=== PATIENT | male | born 1970 | race Caucasian/White ===

== ENCOUNTER 2023-08-06 17:06 | Emergency (ER) | payer BC ==
[2023-08-06 17:23] VITALS: BP 178/97; O2SAT 98
[2023-08-06] MEDS: IBUPROFEN 600 MG TABLET PO STA (18:02)
[2023-08-06] MEDS: ACETAMINOPHEN 325 MG TABLET PO STA (18:02)
--- NOTE | 2023-08-06 18:32 | ED Physician Documentation ---
PD HPI HEAD INJURY - Stated complaint Stated Complaint: FALL/HEAD LAC - Chief complaint Chief Complaint: Trauma Hd/Nk - Additional information Additional information: 53-year-old male with no pertinent past medical history presents emergency department for fall downstairs. Patient said that he was working on a deck with his father he went to go step down a stair and forgot that that stent had been removed he fell about 4 feet on the back of his head onto concrete. There is a large scalp hematoma to posterior head, no confusion no loss of consciousness no seizure-like activity no nausea vomiting. Patient says that he feels jittery a nd shaky and he feels a mild jaw pain. PD PAST MEDICAL HISTORY - Past Medical History Past Medical History: No - Past Surgical History Past Surgical History: No - Present Medications Home Medications: Ambulatory Orders Medication Instructions Recorded Confirmed No Known Home Medications 08/06/23 08/06/23 - Allergies Allergies/Adverse Reactions: Allergies Allergy/AdvReac Type Severity Reaction Status Date / Time No Known Drug Allergies Allergy Verified 08/06/23 17:19 - Social History Does the pt smoke?: No Smoking Status: Never smoker Does the pt drink ETOH?: No Does the pt have substance abuse?: No - Immunizations Immunizations are current?: No PD ED PE NORMAL - Vitals Vital signs reviewed: Yes - General General: Alert and oriented X 3, No acute distress, Well developed/nourished - HEENT HEENT: PERRL, Other (About 8 cm posterior scalp hematoma) - Derm Derm: Other (superficial scalp abrasions) - Extremities Extremities: No deformity - Neuro Neuro: Alert and oriented X 3, glove cleaner 2-12 intact, No motor deficit, No sensory deficit, Normal speech Eye Opening: Spontaneous Motor: Obeys Commands Verbal: Oriented GCS Score: 15 - Psych Psych: Normal mood, Normal affect Results - Vitals Vitals: Vital Signs - 24 hr 08/06/23 17:15 Temperature 36 C L Heart Rate 92 Respiratory 18 Rate Blood Pressure 178/97 H O2 Saturation 98 - Labs Labs: Laboratory Tests 08/06/23 08/06/23 18:40 18:40 WBC 13.4 H RBC 4.77 Hgb 14.2 Hct 42.1 MCV 88.3 MCH 29.8 MCHC 33.7 RDW 12.5 Plt Count 280 MPV 10.1 Neut # (Auto) 9.3 H Lymph # (Auto) 2.8 [place] # (Auto) 0.9 Eos # (Auto) 0.3 Baso # (Auto) 0.1 Absolute Nucleated RBC 0.00 Nucleated RBC % 0.0 Sodium 138 Potassium 3.7 Chloride 105 Carbon Dioxide 26 Anion Gap 7.0 BUN 17 Creatinine 1.0 Estimated GFR (MDRD) 78 L Glucose 122 H Calcium 9.4 Magnesium 1.9 Total Bilirubin 0.5 AST 18 ALT 18 Alkaline Phosphatase 67 Total Protein 7.8 Albumin 4.4 Globulin 3.4 Albumin/Globulin Ratio 1.3 Lipase 24 - Rads (name of study) Head CT without Relevant Findings:: Final report received, EMP independent interpretation of test, Other (Significant intracranial hemorrhage largely subarachnoid seen anterior all left worse than right scalp hematoma on the right) PD Medical Decision Making - ED course ED course: 53-year-old male completely neurologically intact comes into the emergency department for fall from about 4 steps onto concrete hitting the back of his Head. CT without contrast was complete and it revealed a significant intracranial hemorrhage Which is largely subarachnoid seen anteriorly left worse than right. CT maxillofacial and CT cervical was also complete but these results are still pending. We have reached out to [facility] spoke with Dr. Will ER physician who has agreed to accept patient ER to ER for transfer. Patient is completely neurologically intact no neurological deficits. He is superficial abrasions to the posterior scalp. He does endorse and headache he was given Tylenol ibuprofen here in the emergency department he was not given any benzos or narcotics and does not show any lethargy or fatigue prior to transfer out. C-spine was placed on patient as we have not had the official CT reads back from radiology. Patient was updated of the findings he is aware and agreeable to be transferred to [facility] via [facility]. Departure - Departure Disposition: 02 Transfer Acute Care Hosp Forms: PCP List
[2023-08-06 18:52] LABS: BASOPHILS # (AUTO) 0.1 10^3/uL (0.0-0.1); BASOPHILS % (AUTO) 0.7 %; EOSINOPHILS # (AUTO) 0.3 10^3/uL (0.0-0.7); HCT - HEMATOCRIT 42.1 % (42.0-52.0); HGB - HEMOGLOBIN 14.2 g/dL (14.0-18.0); LYMPHOCYTES # (AUTO) 2.8 10^3/uL (1.5-3.5); LYMPHOCYTES % (AUTO) 20.6 %; MEAN CORPUSCULAR HEMOGLOBIN 29.8 pg (27.0-31.0); MEAN CORPUSCULAR HGB CONC 33.7 g/dL (32.0-36.0); MEAN CORPUSCULAR VOLUME 88.3 fL (80.0-94.0); MEAN PLATELET VOLUME 10.1 fL (7.4-11.4); MONOCYTES # (AUTO) 0.9 10^3/uL (0.0-1.0); MONOCYTES % (AUTO) 6.9 %; NEUTROPHILS # (AUTO) 9.3 10^3/uL (1.5-6.6); NEUTROPHILS % (AUTO) 69.3 %; PLT - PLATELET COUNT 280 10^3/uL (130-450); RED BLOOD COUNT 4.77 10^6/uL (4.70-6.10); RED CELL DISTRIBUTION WIDTH 12.5 % (12.0-15.0); WHITE BLOOD COUNT 13.4 x10^3/uL (4.8-10.8)
[2023-08-06 18:59] LABS: MAGNESIUM 1.9 mg/dL (1.7-2.3)
--- NOTE | 2023-08-06 19:02 | CT Report ---
PROCEDURE: Head WO INDICATIONS: fall from stairs, large scalp hematoma TECHNIQUE: Noncontrast 4.5 mm thick angled axial sections acquired from the foramen magnum to the vertex. For r adiation dose reduction, the following was used: automated exposure control, adjustment of mA and/or kV according to patient size. COMPARISON: None. FINDINGS: Image quality: Excellent. CSF spaces: Basal cisterns are patent. No extra-axial fluid collections. Ventricles are normal in size and shape. Brain: There is significant intracranial hemorrhage, which is largely seen as subarachnoid hemorrhag e anteriorly, left worse than right. Potential parenchymal hemorrhage can be seen involving the left temporal lobe. No midline shift. No intracranial masses. Singleton-white matter interface is normal. Skull and face: A scalp hematoma is seen posteriorly and on the right. Calvarium and visualized facia l bones are intact, without suspicious lesions. Sinuses: Visualized sinuses and mastoids are clear. IMPRESSION: There is significant intracranial hemorrhage seen, which is largely subarachnoid hemorrhage seen ante riorly, left worse than right. Additional potential parenchymal hemorrhage can be seen with involving the left temporal lobe. There is a scalp hematoma seen posteriorly on the right. No associated calvarial fracture is seen. Note: Critical findings discussed by telephone with Rose Marion at 6:59 PM [place] time on 08/06/2023 . Reviewed by: Gerardo Fajardo MD on 08/06/2023 6:00 PM AKDT Approved by: Gerardo Fajardo MD on 08/06/2023 6:00 PM AKDT Station ID: [id number]
[2023-08-06 19:05] LABS: ALBUMIN 4.4 g/dL (3.2-5.5); ALBUMIN/GLOBULIN RATIO 1.3 (1.0-2.2); BILIRUBIN,TOTAL 0.5 mg/dL (0.2-1.0); CALCIUM 9.4 mg/dL (8.5-10.3); POTASSIUM 3.7 mmol/L (3.5-4.5); TOTAL PROTEIN 7.8 g/dL (6.4-8.9)
--- NOTE | 2023-08-06 19:37 | CT Report ---
PROCEDURE: Maxillofacial WO INDICATIONS: skull fracture TECHNIQUE: Noncontrast 1.5 mm thick axial images acquired from the mandible through the frontal sinuses, with co erick and sagittal reformatting. For radiation dose reduction, the following was used: automated ex posure control, adjustment of mA and/or kV according to patient size. COMPARISON: Correlation is made with the accompanying imaging. FINDINGS: Image quality: Excellent. Bones and teeth: Orbital perrin are intact. Sinus perrin show no fracture or deformity. Nasal bones and septum are intact. Visualized portions of the mandible demonstrate no fractures or subluxation. Zygomatic arches are intact. Pterygoid plates are intact. Visualized portions of the skull base an d auditory canals are intact. Sinuses: Paranasal sinuses are aerated, without fluid levels, mucosal thickening, or mucoceles. Mas toid air cells are aerated. Soft tissues: No edema, masses, or fluid collections. No enlarged lymph nodes. No soft tissue lace rations or debris. Vascular: Visualized vascular structures appear normal in the absence of contrast. Bony vascular fo ramina and canals are intact. The known acute intracranial hemorrhage is again seen, left worse than right. IMPRESSION: No calvarial fracture is seen. No displaced facial bone fracture is seen. No fracture or dislocation can be seen of the mandible. Reviewed by: Gerardo Fajardo MD on 08/06/2023 6:35 PM ALEM Approved by: Gerardo Fajardo MD on 08/06/2023 6:35 PM ALEM Station ID: [id number]
--- NOTE | 2023-08-06 19:40 | CT Report ---
PROCEDURE: Cervical Spine WO INDICATIONS: Fall from stairs onto concrete TECHNIQUE: Noncontrast 3 mm thick sections acquired from the skull base to the T4 level. Sagittal and coronal r eformats were then constructed. Dedicated oblique axial images were reconstructed through the disk levels. For radiation dose reduction, the following was used: automated exposure control, adjustme nt of mA and/or kV according to patient size. COMPARISON: Correlation is made with the accompanying imaging. FINDINGS: Image quality: Excellent. Bones: No fractures or dislocations. Visualized superior ribs are intact. Focal degenerative change can be seen involving the C1-C2 interface anteriorly. There is mild disc sp syeda narrowing seen at C4-C5, with at least moderate disc space narrowing seen at C5-C6 and the C6-C7. Soft tissues: Prevertebral soft tissues are normal in thickness. No paravertebral hematomas. No ap ical pneumothoraces. IMPRESSION: No acute cervical spine fracture is seen. Cervical spine degenerative changes are seen, which are worst inferiorly. Reviewed by: Gerardo Fajardo MD on 08/06/2023 6:38 PM AKYASMANI Approved by: Gerardo Fajardo MD on 08/06/2023 6:38 PM AKYASMANI Station ID: [id number]
== END 2023-08-06 19:17 | disposition short-term general hospital (02) ==
LOC: ED 17:06
DX: S06.6X0A Traumatic subarachnoid hemorrhage without loss of consciousness, initial encounter (principal); S00.01XA Abrasion of scalp, initial encounter; W10.9XXA Fall (on) (from) unspecified stairs and steps, initial encounter; Y93.89 Activity, other specified
CPT/HCPCS: 36415; 70450; 70486; 72125; 80053; 83690; 83735; 85025; 99285; A9270